=== PATIENT | female | born 1930 | race Caucasian/White ===

== ENCOUNTER 2022-03-13 10:36 | Day surgery (SDC) | payer OTHER, MEDICARE ==
[2022-03-06 09:25] VITALS: BMI 30.2
[2022-03-13] MEDS ORDERED: BUPIVACAINE HCL/PF 0.25% (2.5MG/ML) 10 ML VIAL ONE (11:58)
[2022-03-13] MEDS ORDERED: DEXAMETHASONE SOD PHOSPHATE 4 MG/1 ML VIAL ONE ×2 (11:58→13:01)
[2022-03-13] MEDS ORDERED: LIDOCAINE HCL 2% (20ML MULTI-DOSE VIAL) ONE (11:58)
[2022-03-13] MEDS ORDERED: MIDAZOLAM HCL 2 MG/2 ML SINGLE DOSE VIAL ONE (12:31)
[2022-03-13] MEDS ORDERED: PROPOFOL 20 ML ONE (12:48)
[2022-03-13] MEDS ORDERED: oxyCODONE HCL 5 MG TABLET PO PRN (14:40)
[2022-03-13] MEDS ORDERED: ONDANSETRON 4 MG/2 ML VIAL IVPUSH PRN (14:40)
[2022-03-13] MEDS ORDERED: LACTATED RINGERS SOLUTION 1,000 ML IV SCH (14:45)
[2022-03-13 15:09] VITALS: TEMP 97.5
[2022-03-13 16:15] VITALS: BP 93/67; PULSE 64
== END 2022-03-13 15:50 | disposition home or self-care (01) ==
LOC: FASU 10:36
PROVIDERS: ATTEND Podiatrist
PROC: 0QSP04Z Reposition Left Metatarsal with Internal Fixation Device, Open Approach (ICD-10-PCS; principal; 2022-03-13 12:41)
DX: M20.12 Hallux valgus (acquired), left foot (principal)
CPT/HCPCS: 28298; C1713; 73630-TC-LT; 88304-TC; 88311-TC